=== PATIENT | female | born 1960 | race Caucasian/White ===

== ENCOUNTER → 2017-03-09 | Outpatient (CLI) | payer MEDICAID ==
[~2017-03-09] MED LIST: CHOL500050 PO; CYCL-259 PO; EMPA10TA PO; GLIM2TAB2 PO; LISI-167 PO; MECL25TA4 PO; METF500T4 PO; NEBI10TA3 PO; NEBI5TAB2 PO; OMEP-110 PO; ONDA4TAB7 PO; RANI150T8 PO; SUCR1ORA2 PO; TRAM-28 PO
== END | disposition home or self-care (01) ==
LOC: CVU 07:31
PROVIDERS: ATTEND Family Medicine
DX: R07.9 Chest pain, unspecified (principal); R00.2 Palpitations; R06.02 Shortness of breath
CPT/HCPCS: 93017; 93225; 93350